=== PATIENT | female | born 1995 | race Caucasian/White ===

== ENCOUNTER 2023-10-28 02:44 | Emergency (ER) | payer BC ==
[~2023-10-28] VITALS: Ht 157.5 cm; Wt 102.2 kg
[2023-10-28 02:50] VITALS: BP 140/90; PULSE 73; RESP 16; TEMP 98.4; O2SAT 97
[2023-10-28 03:20] LABS: STREP A SCREEN NEGATIVE (Neg)
== END 2023-10-28 07:46 | disposition left against medical advice (07) ==
LOC: ER 02:45
DX: J02.9 Acute pharyngitis, unspecified (principal); Z53.21 Procedure and treatment not carried out due to patient leaving prior to being seen by health care provider
CPT/HCPCS: 87081; 87880; 99281